=== PATIENT | male | born 1965 | race Caucasian/White ===

== ENCOUNTER → 2017-10-30 | Outpatient (CLI) | payer BC, OTHER | END | disposition home or self-care (01) | LOC: EDSEX 09:32 → MMGSC 09:32 → MERGE 09:32 | PROVIDERS: ATTEND Obstetrics & Gynecology | DX: E29.1 Testicular hypofunction (principal) | CPT/HCPCS: 36415; 82670; 84403 ==

== ENCOUNTER 2020-05-31 12:13 | Emergency (ER) | payer BC, OTHER ==
[2020-05-31 12:25] VITALS: RESP 18
[2020-05-31] MEDS ORDERED: KETOROLAC 15 MG/ML 1 ML VIAL IVP STA (12:49)
[2020-05-31] MEDS ORDERED: MORPHINE SULFATE 4 MG/ML SYRINGE IV STA (12:49)
[2020-05-31] MEDS ORDERED: SODIUM CHLORIDE 0.9% 1,000 ML IV STA ×3 (12:49→13:43)
--- NOTE | 2020-05-31 12:52 | ED ---
Abdominal Pain HPI - General Chief Complaint: Back Pain/Injury Stated Complaint: kidney stones Time Seen by Provider: 05/31/20 12:27 Source: patient, RN notes reviewed, old records reviewed Mode of arrival: ambulatory Limitations: no limitations - History of Present Illness Initial Comments: This is a 54-year-old male presents today for evaluation regards to abdominal pain left-sided flank pain I. The glenoid blood in the ER. Patient's history of kidney stones this is similar history that he has currently now. Otherwise no recent travel history or sick contacts. No other injuries. Symptoms of been episodic for a few weeks to months now. Began has had history of kidney stones in the past family on the right side MD Complaint: abdominal pain, flank pain (Left-sided) -: week(s) Location: LLQ, suprapubic Radiation: L flank Severity: moderate Severity scale (1-10): 7 Quality: sharp Consistency: constant Improves With: nothing Worsens With: nothing Associated Symptoms: nausea, vomiting, dysuria, hematuria - Related Data Home Medications Medication Instructions Recorded Confirmed Anastrozole 1 mg PO MOWEFR 05/31/20 05/31/20 Aspirin 81 mg PO DAILY 05/31/20 05/31/20 Clopidogrel [Plavix] 75 mg PO DAILY 05/31/20 05/31/20 Multivitamins, Thera [Multivitamin 1 tab PO DAILY 05/31/20 05/31/20 (formulary)] Testosterone Cypionate 150 mg IM FR 05/31/20 05/31/20 [Depo-Testosterone] carvediloL [Coreg] 3.125 mg PO BID 05/31/20 05/31/20 Allergies Allergy/AdvReac Type Severity Reaction Status Date / Time sildenafil [From Viagra] Allergy Unknown Verified 05/31/20 13:34 Review of Systems ROS Statement: Those systems with pertinent positive or pertinent negative responses have been documented in the HPI. ROS Other: All systems not noted in ROS Statement are negative. Past Medical History Past Medical History: Coronary Artery Disease (CAD), Hypertension Additional Past Medical History / Comment(s): kidney stones History of Any Multi-Drug Resistant Organisms: None Reported Past Surgical History: Heart Catheterization With Stent Past Psychological History: No Psychological Hx Reported Smoking Status: Never smoker Past Alcohol Use History: None Reported Past Drug Use History: None Reported General Exam Limitations: no limitations General appearance: alert, in no apparent distress Head exam: Present: atraumatic, normocephalic, normal inspection Eye exam: Present: normal appearance, PERRL, EOMI. Absent: scleral icterus, conjunctival injection, periorbital swelling ENT exam: Present: normal exam, mucous membranes moist Neck exam: Present: normal inspection. Absent: tenderness, meningismus, lymphadenopathy Respiratory exam: Present: normal lung sounds bilaterally. Absent: respiratory distress, wheezes, rales, rhonchi, stridor Cardiovascular Exam: Present: regular rate, normal rhythm, normal heart sounds. Absent: systolic murmur, diastolic murmur, rubs, gallop, clicks GI/Abdominal exam: Present: soft, normal bowel sounds. Absent: distended, tenderness, guarding, rebound, rigid Extremities exam: Present: normal inspection, full ROM, normal capillary refill. Absent: tenderness, pedal edema, joint swelling, calf tenderness Back exam: Present: normal inspection Neurological exam: Present: alert, oriented X3, CN II-XII intact Psychiatric exam: Present: normal affect, normal mood Skin exam: Present: warm, dry, intact, normal color. Absent: rash Course Vital Signs 05/31/20 05/31/20 12:21 13:10 Temperature 98.6 F Pulse Rate 78 67 Respiratory 18 18 Rate Blood Pressure 156/99 180/94 O2 Sat by Pulse 100 99 Oximetry - Reevaluation(s) Reevaluation #1: 05/31/20 12:51 Medical records reviewed Reevaluation #2: 05/31/20 13:51 Symptoms significantly improved Reevaluation #3: 05/31/20 13:44 Patient has adequate pain control Reevaluation #4: 05/31/20 13:45 Patient informed results questions are answered Medical Decision Making - Medical Decision Making 54 male DF for evaluation of results patient is currently kidney stone today. Patient can be discharged home - Lab Data Result diagrams: 05/31/20 12:53 05/31/20 12:53 Lab Results 05/31/20 05/31/20 05/31/20 Range/Units 12:53 12:53 12:53 WBC 8.9 (3.8-10.6) k/uL RBC 5.88 (4.30-5.90) m/uL Hgb 16.6 (13.0-17.5) gm/dL Hct 51.4 (39.0-53.0) % MCV 87.4 (80.0-100.0) fL MCH 28.3 (25.0-35.0) pg MCHC 32.4 (31.0-37.0) g/dL RDW 12.3 (11.5-15.5) % Plt Count 167 (150-450) k/uL Neutrophils % 79 % Lymphocytes % 11 % Monocytes % 8 % Eosinophils % 1 % Basophils % 0 % Neutrophils # 7.0 (1.3-7.7) k/uL Lymphocytes # 1.0 (1.0-4.8) k/uL Monocytes # 0.7 (0-1.0) k/uL Eosinophils # 0.1 (0-0.7) k/uL Basophils # 0.0 (0-0.2) k/uL Sodium 137 (137-145) mmol/L Potassium 5.4 H (3.5-5.1) mmol/L Chloride 100 (98-107) mmol/L Carbon Dioxide 31 H (22-30) mmol/L Anion Gap 6 mmol/L BUN 18 (9-20) mg/dL Creatinine 1.38 H (0.66-1.25) mg/dL Est GFR (CKD-EPI)AfAm 68 (>60 ml/min/1.73 sqM) Est GFR (CKD-EPI)NonAf 59 (>60 ml/min/1.73 sqM) Glucose 99 (74-99) mg/dL Calcium 9.3 (8.4-10.2) mg/dL Total Bilirubin 1.8 H (0.2-1.3) mg/dL AST 45 (17-59) U/L ALT 39 (4-49) U/L Alkaline Phosphatase 82 (38-126) U/L Creatine Kinase 426 H (55-170) U/L Total Protein 7.3 (6.3-8.2) g/dL Albumin 4.5 (3.5-5.0) g/dL Amylase 51 (30-110) U/L Lipase 77 (23-300) U/L Urine Color Yellow Urine Appearance Clear (Clear) Urine pH 6.0 (5.0-8.0) Ur Specific [place] 1.018 (1.001-1.035) Urine Protein Negative (Negative) Urine Glucose (UA) Negative (Negative) Urine Ketones 2+ H (Negative) Urine Blood Moderate H (Negative) Urine Nitrite Negative (Negative) Urine Bilirubin Negative (Negative) Urine Urobilinogen <2.0 (<2.0) mg/dL Ur Leukocyte Esterase Negative (Negative) Urine RBC >182 H (0-5) /hpf Urine WBC 12 H (0-5) /hpf Urine Mucus Rare H (None) /hpf - Radiology Data Radiology results: report reviewed (CT head and pelvis positive for left-sided kidney stone), image reviewed Disposition Clinical Impression: Left ureteral stone Disposition: HOME SELF-CARE Condition: Good Instructions (If sedation given, give patient instructions): Kidney Stones (ED) Is patient prescribed a controlled substance at d/c from ED?: No Referrals: Nikita Nash MD [STAFF PHYSICIAN] - 1-2 days
[2020-05-31 13:16] LABS: Basophils % (A) 0 %; Eosinophils # (A) 0.1 k/uL (0-0.7); Eosinophils % (A) 1 %; HCT 51.4 % (39.0-53.0); HGB 16.6 gm/dL (13.0-17.5); Lymphocytes % (A) 11 %; MCH 28.3 pg (25.0-35.0); MCHC 32.4 g/dL (31.0-37.0); MCV 87.4 fL (80.0-100.0); Mean Platelet Volume 7.8; Monocytes # (A) 0.7 k/uL (0-1.0); Monocytes % (A) 8 %; Neutrophils % (A) 79 %; Platelet Count 167 k/uL (150-450); RBC 5.88 m/uL (4.30-5.90); RDW 12.3 % (11.5-15.5); WBC 8.9 k/uL (3.8-10.6)
[2020-05-31 13:27] LABS: Appearance,Urine Clear (Clear); Bilirubin,Urine Negative (Negative); Blood,Urine Moderate (Negative); Color,Urine Yellow; Glucose,Urine (UA) Negative (Negative); Ketones,Urine 2+ (Negative); Leukocyte Esterase,Urine Negative (Negative); Mucus,Urine Rare /hpf; Nitrite,Urine Negative (Negative); Protein,Urine Negative (Negative); RBC,Urine >182 /hpf (0-5); Specific Gravity,Urine 1.018 (1.001-1.035); Urobilinogen,Urine <2.0 mg/dL (<2.0); WBC,Urine 12 /hpf (0-5)
[2020-05-31 13:28] LABS: Albumin 4.5 g/dL (3.5-5.0); Calcium 9.3 mg/dL (8.4-10.2); Potassium 5.4 mmol/L (3.5-5.1); Total Bilirubin 1.8 mg/dL (0.2-1.3); Total Protein 7.3 g/dL (6.3-8.2)
--- NOTE | 2020-05-31 13:41 | CT ---
EXAMINATION TYPE: CT abdomen pelvis wo con DATE OF EXAM: 05/31/2020 COMPARISON: None HISTORY: Lt flank pain CT DLP: 952.9 mGycm Automated exposure control for dose reduction was used. TECHNIQUE: Helical acquisition of images was performed from the lung bases through the pelvis. CONTRAST: Performed without Oral Contrast or intravenous contrast. FINDINGS: LUNG BASES: Normal. LIVER: Normal size and attenuation. BILIARY SYSTEM: No intrahepatic or extrahepatic biliary ductal dilatation. PANCREAS: No peripancreatic inflammation. SPLEEN: Not enlarged. ADRENALS: Normal. KIDNEYS: Normal right kidney. Left kidney demonstrates mild hydronephrosis and hydroureter, to the po int of a 7 mm stone within the left mid ureter. Mild left perinephric and periureteral inflammatory s tranding. BOWEL: No evidence of obstruction or thickening. Normal appendix. PERITONEUM: No free air is visualized. No free fluid. ADENOPATHY: No lymphadenopathy. PELVIS: Nondistended urinary bladder. Coarse calcifications in the prostate. VASCULATURE: No abdominal aortic aneurysm. MUSCULOSKELETAL: Degenerative changes of the spine. IMPRESSION: Left mid ureteral 7 mm calculus, with mild upstream hydroureteronephrosis and inflammatory stranding.
[2020-05-31] MEDS ORDERED: IBUPROFEN 600 MG TAB PO STA (13:43)
[2020-05-31] MEDS ORDERED: ACET/COD 300 MG/30 MG STARTER PACK 6 TAB BTL PO STA (13:43)
[2020-05-31] MEDS ORDERED: TAMSULOSIN 0.4 MG CAP.ER.24H PO STA (13:43)
[2020-05-31] MEDS ORDERED: Acetaminophen-Codeine 300-30mg TAB PO STA (13:43)
[2020-05-31 14:24] VITALS: BP 122/78; PULSE 68; TEMP 98.1
== END 2020-05-31 14:24 | disposition home or self-care (01) ==
LOC: EC 12:13
DX: N20.2 Calculus of kidney with calculus of ureter (principal); I10 Essential (primary) hypertension; Z79.899 Other long term (current) drug therapy; Z79.82 Long term (current) use of aspirin; Z79.02 Long term (current) use of antithrombotics/antiplatelets; Z88.8 Allergy status to other drugs, medicaments and biological substances; Z87.442 Personal history of urinary calculi
CPT/HCPCS: 36415; 80053; 82150; 82550; 83690; 85025; 81001; 87086; 74176; 99284; 96374; 96375; 96361; J2270; J1885

== ENCOUNTER → 2020-07-12 | Outpatient (CLI) | payer OTHER ==
--- NOTE | 2020-07-12 19:03 | XR ---
EXAMINATION TYPE: XR KUB DATE OF EXAM: 07/12/2020 2:26 PM CLINICAL HISTORY: Calculus of ureter. TECHNIQUE: Supine images of the abdomen and pelvis were obtained COMPARISON: CT abdomen pelvis 05/31/2020. FINDINGS: No calculi overlie the renal shadows or expected course of the ureters. Pelvic phleboliths. Nonspecific bowel gas pattern. Osseous structures are intact. IMPRESSION: No definitive renal or ureteral calculi.
== END | disposition home or self-care (01) ==
LOC: RADXRMAIN 14:15
PROVIDERS: ATTEND Urology
DX: N20.1 Calculus of ureter (principal)
CPT/HCPCS: 74018

== ENCOUNTER → 2020-07-25 | Outpatient (CLI) | payer OTHER ==
--- NOTE | 2020-07-25 10:24 | CT ---
EXAMINATION TYPE: CT abdomen pelvis wo con DATE OF EXAM: 07/25/2020 HISTORY: Ureteral stone CT DLP: 993 mGycm. Automated Exposure Control for Dose Reduction was Utilized. TECHNIQUE: CT scan of the abdomen and pelvis is performed without oral or IV contrast. COMPARISON: CT abdomen and pelvis May 31, 2020 and abdominal x-ray July 12, 2020 FINDINGS: Within the limitations of a non-contrast study, the following observations are made. LUNG BASES: No significant abnormality is appreciated. LIVER/GB: No significant abnormality is appreciated. PANCREAS: No significant abnormality is seen. SPLEEN: No significant abnormality is seen. ADRENALS: No significant abnormality is seen. KIDNEYS: No right-sided renal stones or hydronephrosis. Redemonstration of 8mm left ureter calculus c oronal image 65 fairly stable in size from prior CT, and has progressed distally and is now close to the UVJ. It is causing persistent [id number] left-sided hydronephrosis fairly stable from prior . Marked interval improvement in degree of perinephric and periureteral fat stranding. BOWEL: Normal-appearing appendix from cecum in the right pelvis. Small bowel feces sign terminal ileu m. No suspicious small large bowel dilatation. Findings consistent with delayed passage of ingested m aterial to colonic level. GENITAL ORGANS: Central calcifications in normal sized prostate. Few scattered pelvic phleboliths on the right. LYMPH NODES: No greater than 1cm abdominal or pelvic lymph nodes are appreciated. OSSEOUS STRUCTURES: Mild/moderate multilevel spurring in the thoracolumbar spine. OTHER: No significant additional abnormality is seen. IMPRESSION: The 8 mm left ureter calculus is stable in size and appearance, stable [id number] l eft-sided hydronephrosis. Interval distal progression approaching left UVJ noted.
== END | disposition home or self-care (01) ==
LOC: RADCTMAIN 09:15
PROVIDERS: ATTEND Urology
DX: N13.2 Hydronephrosis with renal and ureteral calculous obstruction (principal); Z88.8 Allergy status to other drugs, medicaments and biological substances
CPT/HCPCS: 74176

== ENCOUNTER → 2020-08-04 | Outpatient (CLI) | payer OTHER ==
[2020-08-04 10:48] LABS: Basophils # (A) 0.1 k/uL (0-0.2); Basophils % (A) 1 %; Eosinophils # (A) 0.1 k/uL (0-0.7); Eosinophils % (A) 2 %; HCT 51.3 % (39.0-53.0); HGB 16.8 gm/dL (13.0-17.5); Lymphocytes # (A) 1.5 k/uL (1.0-4.8); Lymphocytes % (A) 29 %; MCH 29.6 pg (25.0-35.0); MCHC 32.7 g/dL (31.0-37.0); MCV 90.5 fL (80.0-100.0); Mean Platelet Volume 7.2; Monocytes # (A) 0.4 k/uL (0-1.0); Monocytes % (A) 7 %; Neutrophils # (A) 3.1 k/uL (1.3-7.7); Neutrophils % (A) 59 %; Platelet Count 181 k/uL (150-450); RBC 5.67 m/uL (4.30-5.90); RDW 12.6 % (11.5-15.5); WBC 5.3 k/uL (3.8-10.6)
[2020-08-04 10:57] LABS: African American GFR (CKD) >90 (>60 ml/min/1.73 sqM); Anion Gap 9 mmol/L; Blood Urea Nitrogen 20 mg/dL (9-20); Calcium 9.4 mg/dL (8.4-10.2); Carbon Dioxide 27 mmol/L (22-30); Chloride 101 mmol/L (98-107); Glucose 93 mg/dL (74-99); Non-African American GFR(CKD) 82 (>60 ml/min/1.73 sqM); Potassium 4.1 mmol/L (3.5-5.1); Sodium 137 mmol/L (137-145)
[2020-08-04 11:30] LABS: Appearance,Urine Clear (Clear); Bilirubin,Urine Negative (Negative); Blood,Urine Negative (Negative); Color,Urine Colorless; Glucose,Urine (UA) Negative (Negative); Ketones,Urine 2+ (Negative); Leukocyte Esterase,Urine Trace (Negative); Mucus,Urine Rare /hpf; Nitrite,Urine Negative (Negative); PH, Urine 5.5 (5.0-8.0); Protein,Urine Negative (Negative); RBC,Urine <1 /hpf (0-5); Specific Gravity,Urine 1.008 (1.001-1.035); Urobilinogen,Urine <2.0 mg/dL (<2.0); WBC,Urine 1 /hpf (0-5)
== END | disposition home or self-care (01) ==
LOC: LABPAT 09:39
PROVIDERS: ATTEND Urology
DX: Z01.818 Encounter for other preprocedural examination (principal); N20.1 Calculus of ureter
CPT/HCPCS: 36415; 80048; 81001; 85025; 87086

== ENCOUNTER 2020-08-10 10:34 | Day surgery (SDC) | payer OTHER ==
--- NOTE | 2020-08-08 12:04 | P.HPIHPCON ---
History of Present Illness H&P Date: 08/08/20 Chief Complaint: left uretera stone Mr Mcneill is a 54 yo male with hx of 7 mm left sided ureteral stone, he has failed medical expulsive therapy and stone has been present for approximately 2 months. Of note he had a recent cardiac stent placement, and is currently on Plavix. I discussed given that the stone has been present for approximately 2 months. I recommend we proceed with surgical intervention. Discussed with him the option of doing a ureteroscopy, discussed with him the risk of the procedure which includes but not limited to bleeding, infection, injury to the ureter. I did discussed with him given his plavix he is at an increased risk of bleeding, he is also an increased risk of cardiac side effects given his recent stents. He understood all the risk and agreed to proceed with left-sided ureteroscopy, with holmium laser lithotripsy, stone basketing and stent placement Consent for Procedure: I have explained the operation/procedure to the patient, including the risks, benefits, side effects, alternative therapies (including not receiving the proposed treatment or service), the likelihood of the patient achieving his/her goals, and potential recuperation problems for the procedure/sedation/analgesia, as well as any blood products, if indicated. I also explained to the patient the risks, benefits and side effects of the alternatives, as well as the risks related to not receiving the proposed procedure, care, treatment, or services. - Constitutional Constitutional: Denies chills, Denies fever - Cardiovascular Cardiovascular: Denies chest pain, Denies shortness of breath - Respiratory Respiratory: Denies cough, Denies 7 - Gastrointestinal Gastrointestinal: Denies abdominal pain, Denies diarrhea, Denies nausea, Denies vomiting - Genitourinary (Female) Genitourinary: Reports kidney stones, Denies dysuria, Denies hematuria Past Medical History Past Medical History: Coronary Artery Disease (CAD), Hypertension Additional Past Medical History / Comment(s): kidney stones History of Any Multi-Drug Resistant Organisms: None Reported Past Surgical History: Heart Catheterization With Stent Past Psychological History: No Psychological Hx Reported Smoking Status: Never smoker Past Alcohol Use History: None Reported Past Drug Use History: None Reported Medications and Allergies Home Medications Medication Instructions Recorded Confirmed Type Anastrozole 1 mg PO MOWEFR 05/31/20 05/31/20 History Aspirin 81 mg PO DAILY 05/31/20 05/31/20 History Clopidogrel [Plavix] 75 mg PO DAILY 05/31/20 05/31/20 History Multivitamins, Thera [Multivitamin 1 tab PO DAILY 05/31/20 05/31/20 History (formulary)] Testosterone Cypionate 150 mg IM FR 05/31/20 05/31/20 History [Depo-Testosterone] carvediloL [Coreg] 3.125 mg PO BID 05/31/20 05/31/20 History Allergies Allergy/AdvReac Type Severity Reaction Status Date / Time sildenafil [From Viagra] Allergy Unknown Verified 05/31/20 13:34 Surgical - Exam - General well developed, well nourished, no distress, no pain - Eyes PERRL, normal ocular movement - ENT normal nares, normal mucosa - Respiratory normal expansion, normal respiratory effort - Abdomen Abdomen: soft, non tender Assessment and Plan Assessment: 54 yo male with hx of left sided ureteral stone -OR for left sided ureteroscopy, with holmium laser lithotripsy stone basketting and stent placement
[2020-08-09 09:23] VITALS: BMI 29.7
[~2020-08-10 10:34] MED LIST: HYDROmorphone 0.5 MG/0.5 ML SYRINGE IVP PRN; LACTATED RINGERS 1,000 ML IV SCH; MIDAZOLAM 2 MG/2 ML VIAL IV PRN; ONDANSETRON 4 MG/2 ML VIAL IVP PRN; fentaNYL (PF) 50 MCG/ML 2 ML AMP IV PRN
[2020-08-10] MEDS ORDERED: ONDANSETRON 4 MG/2 ML VIAL ONE (10:57)
[2020-08-10 11:02] VITALS: RESP 16
[2020-08-10] MEDS ORDERED: DEXAMETHASONE SOD PHOSPHATE 4 MG/ML 1 ML VIAL IV ONE (11:03)
[2020-08-10] MEDS ORDERED: SCOPOLAMINE 1.5MG/72HR PATCH TRANSDERM ONE (11:03)
[2020-08-10] MEDS ORDERED: LIDOCAINE 1% (10MG/ML) FOR IV START INTRADERMA ONE (11:03)
[2020-08-10] MEDS ORDERED: LIDOCAINE 1% INJ 10MG/ML (20 ML MDV) ONE (11:44)
[2020-08-10] MEDS ORDERED: fentaNYL (PF) 50 MCG/ML 2 ML AMP ONE (11:44)
[2020-08-10] MEDS ORDERED: PROPOFOL 10 MG/ML 20 ML VIAL IV ONE (11:44)
[2020-08-10] MEDS ORDERED: MIDAZOLAM 2 MG/2 ML VIAL ONE (11:44)
--- NOTE | 2020-08-10 12:57 | P.OP ---
Date of Procedure: 08/10/20 Preoperative Diagnosis: left ureteral stone Postoperative Diagnosis: same Procedure(s) Performed: Cystoscopy, left ureteroscopy, holmium laser lithotripsy, stone basketing and stent placement Implants: 6-Maltese by 26 cm stent left on a string Anesthesia: MARIA ISABEL Surgeon: Nikita Nash Estimated Blood Loss (ml): 10 Pathology: other (Left ureteral stone) Condition: stable Disposition: PACU Indications for Procedure: Mr Mcneill is a 54 yo male with hx of 7 mm left sided ureteral stone, he has failed medical expulsive therapy and stone has been present for approximately 2 months. Of note he had a recent cardiac stent placement, and is currently on Plavix. I discussed given that the stone has been present for approximately 2 months. I recommend we proceed with surgical intervention. Discussed with him the option of doing a ureteroscopy, discussed with him the risk of the procedure which includes but not limited to bleeding, infection, injury to the ureter. I did discussed with him given his plavix he is at an increased risk of bleeding, he is also an increased risk of cardiac side effects given his recent stents. He understood all the risk and agreed to proceed with left-sided ureteroscopy, with holmium laser lithotripsy, stone basketing and stent placement Operative Findings: Left ureteral stone in the distal ureter was significant ureteral edema surrounding the stone Description of Procedure: Patient was brought to the operating room, general anesthesia was induced. He was prepped and draped in sterile fashion and placed in dorsal lithotomy position. Cystoscopy fitted with a 21 sheath was inserted per urethra, cystoscopy was performed showed no abnormality within the bladder. At this time the cystoscope was removed and the semirigid ureteroscope was inserted. The ureteroscope was advanced up the left ureteral orifice, the ureteral stone was visualized in distal ureteral, of note there was significant ureteral edema. Using the holmium laser the stone was fragmented into small fragments. Sizable fragments were removed using the stone basket. At this time the ureteroscope was advanced all the way up to the proximal ureter which showed no additional stone or additional fragments. Pullback ureteroscopy showed no residual stones or injury to the ureter. Of note there was significant edema at the site of stone impaction. At this time the ureteroscope was withdrawn and a wire was advanced through the ureteroscope. Next an 11 x 13-Maltese access sheath was passed over the wire and into the proximal ureter. Next the flexible ureteroscope was inserted through the access sheath and renoscopy was performed which showed no fragments within the kidney or any additional kidney stones. Pullback ureteroscopy was performed showed no injury to ureter or any ureteral stone. At this time a 6-Maltese by 26 cm stent was passed over the wire, stent curl was visualized on fluoroscopy. The stent was left on string. The bladder was emptied and into the case. The patient tolerated the procedure well was taken to PACU in stable condition
[2020-08-10 13:04] VITALS: TEMP 98
[2020-08-10] MEDS ORDERED: LACTATED RINGERS 1,000 ML IV ONE (13:48)
[2020-08-10 14:07] VITALS: BP 129/84; PULSE 82
--- NOTE | 2020-08-10 16:28 | FL ---
EXAMINATION TYPE: FL guidance operating room DATE OF EXAM: 08/10/2020 CLINICAL HISTORY: Left lithotripsy TECHNIQUE: Fluoroscopy. COMPARISON: None. FINDINGS: Fluoroscopic guidance was provided during procedure performed by Dr. Nash. A total of 0 .18 minutes of fluoroscopic time was utilized during the procedure and 4 spot images was acquired. IMPRESSION: As Above.
== END 2020-08-10 14:25 | disposition home or self-care (01) ==
LOC: OR 10:34
PROVIDERS: ATTEND Urology
DX: N20.1 Calculus of ureter (principal); G47.33 Obstructive sleep apnea (adult) (pediatric); Z99.89 Dependence on other enabling machines and devices; Z87.442 Personal history of urinary calculi; Z79.82 Long term (current) use of aspirin; Z79.899 Other long term (current) drug therapy; Z79.02 Long term (current) use of antithrombotics/antiplatelets; Z95.5 Presence of coronary angioplasty implant and graft; Z88.8 Allergy status to other drugs, medicaments and biological substances; I25.10 Atherosclerotic heart disease of native coronary artery without angina pectoris
CPT/HCPCS: 82365; 52356; C2625; C1769; J2250; J1100; J0690; J2405; J2001; J3010; J2704

== ENCOUNTER → 2020-11-14 | Outpatient (CLI) | payer OTHER ==
--- NOTE | 2020-11-14 17:41 | US ---
EXAMINATION TYPE: US kidneys/renal and bladder DATE OF EXAM: 11/14/2020 COMPARISON: NONE CLINICAL HISTORY: 55-year-old male N20.0 CALCULUS OF KIDNEY. History of left lithotripsy, assess for any remaining stones TECHNIQUE: Multiple sonographic images of the kidneys and bladder are obtained. FINDINGS: EXAM MEASUREMENTS: Right Kidney: 10.5 x 5.1 x 6.9 cm Left Kidney: 12.3 x 4.7 x 5.4 cm No hydronephrosis on either side. Bladder: wnl IMPRESSION: No hydronephrosis on either side. No evident renal calculi by ultrasound.
== END ==
LOC: RADUSWWP 15:09
PROVIDERS: ATTEND Urology
DX: Z09 Encounter for follow-up examination after completed treatment for conditions other than malignant neoplasm (principal); Z87.442 Personal history of urinary calculi
CPT/HCPCS: 76770

== ENCOUNTER → 2023-08-14 | Outpatient (CLI) | payer OTHER ==
--- NOTE | 2023-08-14 18:02 | CT ---
EXAMINATION TYPE: CT abdomen pelvis wo con CT DLP: 937 mGycm, Automated exposure control for dose reduction was used. DATE OF EXAM: 08/14/2023 5:20 PM COMPARISON: 07/25/2020 CLINICAL INDICATION:Male, 57 years old with history of C50.812; left side flank pain and RLQ pain, po ssible kidney stone TECHNIQUE: Axial CT of the ;CT abdomen pelvis wo con;Sagittal and coronal reformats were created on a separate workstation. Contrast used: mL of , (none if empty) Oral contrast used: without Oral Contrast (none if empty) FINDINGS: LOWER CHEST: Unremarkable ABDOMEN LIVER: Unremarkable GALLBLADDER AND BILE DUCTS: Unremarkable. PANCREAS: Unremarkable. SPLEEN: Unremarkable. ADRENAL GLANDS: Unremarkable. KIDNEYS AND URETERS: Nonobstructive right 3 mm calculus. No evidence of left renal calculus. No obstr uctive uropathy. PELVIS BLADDER: Unremarkable REPRODUCTIVE: Prostate is enlarged in size measuring 5.1 cm in transverse dimension. ABDOMEN & PELVIS STOMACH AND BOWEL: No evidence of bowel obstruction. The appendix is normal. Third portion duodenal d iverticulum. PERITONEUM/RETROPERITONEUM: No evidence of pneumoperitoneum or free fluid. VASCULATURE: Mild atherosclerotic calcifications are present throughout the abdominal aorta and its b ranches. No evidence of aortic aneurysm. MUSCULOSKELETAL: No acute osseous abnormalities. Moderate disc degeneration changes are present throu ghout the thoracolumbar spine. LYMPH NODES: No gross evidence for lymphadenopathy. SOFT TISSUE/ABDOMINAL WALL: Umbilical fat-containing hernia. IMPRESSION: 1. Right nonobstructing renal calculus. No evidence for hydronephrosis. 2. Prostatomegaly, correlate serum PSA. 3. No acute abdominal process to explain the patient's left flank pain in right lower quadrant pain. Normal-appearing appendix.
== END | disposition home or self-care (01) ==
LOC: RADCTMAIN 16:56
PROVIDERS: ATTEND Family Medicine
DX: N20.0 Calculus of kidney (principal); N40.0 Benign prostatic hyperplasia without lower urinary tract symptoms; R10.31 Right lower quadrant pain
CPT/HCPCS: 74176